=== PATIENT | female | born 1935 | race Caucasian/White ===

== ENCOUNTER 2017-02-03 11:04 | Emergency (ER) | payer MEDICARE, OTHER ==
[2017-02-03 11:33] VITALS: TEMP 97.4
[2017-02-03] MEDS ORDERED: SODIUM CHLORIDE 0.9% (FLUSH) 10 ML SYG IV PRN (12:01)
--- NOTE | 2017-02-03 12:31 | RAD ---
EXAM DESCRIPTION: Chest,1 View CLINICAL HISTORY: 81 years Female, ams, cough COMPARISON: None. IMPRESSION: Heart size and pulmonary vascularity are within normal limits. Low inspiratory volumes which limit evaluation. Mild right infrahilar atelectasis or consolidation is demonstrated which may represent atelectasis or pneumonia. Short interval follow-up recommended. The left lung is essentially clear. No pleural effusion or pneumothorax. No acute osseous abnormality. Electronically signed by: Ever Stack MD 02/03/2017 12:30 PM [facility]
--- NOTE | 2017-02-03 12:35 | ED.PDOC ---
History of Present Illness - General Chief Complaint: Neuro Symptoms/Deficits Stated Complaint: DECREASED LOC Time Seen by Provider: 02/03/17 11:35 Source: family Exam Limitations: physical impairment - WEAKNESS - History of Present Illness Initial Comments: PT BROUGHT TO THE ED FOR EVALUATION BY FAMILY MEMBER WHO STATES THAT PT HAS BEEN INCREASINGLY CONFUSED AND WEAK OVER THE PAST WEEK. FAMILY STATES SHE HAS FALLEN SEVERAL TIMES OVER THE PAST WEEK AND HAS GREAT DIFFICULTY AMBULATING ON HER OWN. FAMILY STATES THAT THEY SUSPECT SHE MAY HAVE OVERDOSED ON HER MEDICATIONS THAT SHE MANAGES HERSELF FOR CHRONIC PAIN. PT UTTERED SUICIDAL IDEATION TODAY WHILE AT HOME AND FAMILY STATES THAT IS UNUSUAL FOR HER. SHE HAS ALSO HAD VISUAL HALLUCINATIONS WHERE SHE SEES FAMILY MEMBERS THAT ARE . FAMILY DENIES FEVER, CHILLS, N/V/D. CHRONIC COUGH AND CHRONIC CONSTIPATION ARE REPORTED. Timing/Duration: 1 week, getting worse Severity: moderate Improving Factors: nothing Worsening Factors: nothing Associated Symptoms: weakness Allergies/Adverse Reactions: Allergies Meperidine [From Demerol HCl] Allergy (Verified 02/03/17 15:09) Home Medications: Ambulatory Orders Amitriptyline HCl 50 mg PO BEDTIME 02/03/17 Carbidopa-Levodopa [Carbidopa/Levodopa 25-250 mg] 1 tab PO Q8H 02/03/17 Donepezil Hydrochloride [Donepezil HCl] 5 mg PO DAILY 02/03/17 Esomeprazole Magnesium 40 mg PO DAILY 02/03/17 Fluticasone Furoate-Vilanterol [Breo Ellipta] 1 inh IN DAILY 02/03/17 Gabapentin [Neurontin] 300 mg PO BID 02/03/17 Lorazepam 0.5 mg PO BID 02/03/17 Morphine Sulfate [Morphine Sulfate ER] 30 mg PO BID 02/03/17 Nitroglycerin 0.4 mg Tab [Nitrostat] 0 ea SL .Q5M 02/03/17 Venlafaxine Xr [Effexor XR] 150 mg PO BID 02/03/17 Review of Systems - Review of Systems Constitutional: Denies: chills, fever EENTM: Denies: nose congestion, throat pain Respiratory: States: see HPI, cough. Denies: short of breath Cardiology: Denies: chest pain, palpitations, syncope Gastrointestinal/Abdominal: States: see HPI, constipation. Denies: diarrhea, nausea, vomiting Musculoskeletal: Denies: joint pain, joint swelling Skin: Denies: change in color, dryness Neurological: States: see HPI, depressed. Denies: headache Endocrine: States: no symptoms reported Hematologic/Lymphatic: States: no symptoms reported Past Medical History (General) - Patient Medical History Hx Seizures: No Hx Stroke: Yes Hx Dementia: Yes Hx of COPD: Yes Hx Cardiac Disorders: Yes - ANGINA Hx Congestive Heart Failure: No Hx Pacemaker: No Hx Hypertension: No Hx Diabetes: No Hx Cancer: No Hx Hepatitis C: No Hx Other PMH: Yes - [place] Surgical History: appendectomy, tonsillectomy, Hysterectomy - Vaccination History Hx Tetanus, Diphtheria Vaccination: No Hx Influenza Vaccination: Yes Hx Pneumococcal Vaccination: No Immunizations Up to Date: No - Social History Hx Tobacco Use: No Hx Alcohol Use: No Hx Substance Use: No Family Medical History - Family History Mother Family History: Unknown Physical Exam - Physical Exam General Appearance: Comfortable, No apparent distress - SOMNOLENT BUT ABLE TO BE AROUSED, Obese, Well Groomed, Well Hydrated Eye Exam: bilateral abnormal pupil - PINPOINT BILATERALLY Ears, Nose, Throat: hearing grossly normal Neck: full range of motion, supple Respiratory: chest non-tender, lungs clear, normal breath sounds, no respiratory distress Cardiovascular/Chest: regular rate, rhythm, no murmur Gastrointestinal/Abdominal: non tender, soft Extremity: non-tender, normal inspection Neurologic: motor weakness - DIFFUSE, depressed affect - SLURRED UNITELLIGIBLE SPEECH Skin Exam: normal color, warm/dry Progress - Progress Progress: 02/03/17 13:01 PT NOW MORE ALERT WITH FREQUENT SPASTIC MOVEMENTS OBSERVED AFTER ADMINISTRATION OF 1MG IV NARCAN. PUPILS NOW 4MM AND REACTIVE. - EKG/XRAY/CT EKG: Sinus, Tachy - @101BPM, NL INTERVALS, NL AXIS, OCC PVCS, no ST T wave changes - NO OLD EKG FOR COMPARISON. Departure - Departure Clinical Impression: Suicidal ideation, Hallucinations, Acute confusion Pneumonia Qualifiers: Pneumonia type: due to unspecified organism Laterality: right Lung location: lower lobe of lung Qualified Code(s): J18.1 - Lobar pneumonia, unspecified organism Suicidal behavior Qualifiers: Attempted self-injury: without attempted self-injury Qualified Code(s): R46.89 - Other symptoms and signs involving appearance and behavior Time of Disposition: 14:00 Disposition: Transfer to Hospital Condition: Fair Departure Forms: ED Discharge - Pt. Copy, Patient Portal Self Enrollment Referrals: SHARONA MCCULLOUGH [Primary Care Provider] - 1-2 Weeks Home Medications: Ambulatory Orders Amitriptyline HCl 50 mg PO BEDTIME 02/03/17 Carbidopa-Levodopa [Carbidopa/Levodopa 25-250 mg] 1 tab PO Q8H 02/03/17 Donepezil Hydrochloride [Donepezil HCl] 5 mg PO DAILY 02/03/17 Esomeprazole Magnesium 40 mg PO DAILY 02/03/17 Fluticasone Furoate-Vilanterol [Breo Ellipta] 1 inh IN DAILY 02/03/17 Gabapentin [Neurontin] 300 mg PO BID 02/03/17 Lorazepam 0.5 mg PO BID 02/03/17 Morphine Sulfate [Morphine Sulfate ER] 30 mg PO BID 02/03/17 Nitroglycerin 0.4 mg Tab [Nitrostat] 0 ea SL .Q5M 02/03/17 Venlafaxine Xr [Effexor XR] 150 mg PO BID 02/03/17 Transfer to Outside Facility - Transfer Information Accepting Provider:: DR. HAMMOND Accepting Facility: [facility] Reason for Transfer: specialized care not available - NEEDS PSYCHIATRIC SERVICES AND ONE TO ONE MONITORING.
[2017-02-03] MEDS: SODIUM CHLORIDE 0.9% 1000ML 1,000 ML IVS PRN (12:48)
[2017-02-03] MEDS: NALOXONE HCL INJ 1 MG/ML SYG IV ONE (12:48)
--- NOTE | 2017-02-03 12:53 | CT ---
EXAM DESCRIPTION: Head-CT head without contrast. CLINICAL HISTORY: Altered mental status. COMPARISON: None available TECHNIQUE: Multiple axial images of the head without contrast. Multiplanar reformatted images. This exam was performed according to our departmental dose-optimization program, which includes automated exposure control, adjustment of the mA and/or kV according to patient size and/or use of iterative reconstruction technique. FINDINGS: Moderately degraded image quality secondary to motion artifact. No definite CT evidence of intracranial hemorrhage, mass effect, or large territory infarction. Moderate generalized volume loss and moderate patchy supratentorial white matter hypodensities are demonstrated. No hydrocephalus. There are no abnormal extra-axial fluid collections. Calcific plaque in the visualized arteries. There is no acute calvarial defect. The visualized paranasal sinuses and the mastoids are clear. IMPRESSION: 1. Limited evaluation with no definite CT evidence of an acute intracranial abnormality. If there is concern for an acute or subacute infarct, consider follow-up MRI. 2. Senescent changes. Electronically signed by: Ever Stack MD 02/03/2017 12:52 PM [facility]
[2017-02-03 14:19] VITALS: O2SAT 100
[2017-02-03] MEDS ORDERED: AZITHROMYCIN IV 500 MG in SODIUM CHLORIDE 0.9% 250ML 250 ML IVPB ONE (14:47)
[2017-02-03] MEDS ORDERED: cefTRIAXone SODIUM 1 GM in SODIUM CHL 0.9% 50ML MIN-BAG+ 50 ML IVPB ONE (14:47)
[2017-02-03 16:17] VITALS: BP 142/88
== END 2017-02-03 16:17 | disposition short-term general hospital (02) ==
LOC: ER 11:04
DX: R45.851 Suicidal ideations (principal); R44.3 Hallucinations, unspecified; R41.0 Disorientation, unspecified; J18.1 Lobar pneumonia, unspecified organism; R46.89 Other symptoms and signs involving appearance and behavior; J44.9 Chronic obstructive pulmonary disease, unspecified; G20 Parkinson's disease; F02.80 Dementia in other diseases classified elsewhere, unspecified severity, without behavioral disturbance, psychotic disturbance, mood disturbance, and anxiety; Z79.899 Other long term (current) drug therapy; Z88.8 Allergy status to other drugs, medicaments and biological substances
CPT/HCPCS: 36415; 70450; 71010; 80053; 80320; 80329; 82550; 82553; 84484; 85025; 85610; 85730; 87040; 93005; J2310; J7030

== ENCOUNTER → 2018-02-26 | Outpatient (CLI) | payer MEDICARE, MEDICAID | LOC: NC 17:28 | PROVIDERS: ATTEND Family Medicine | DX: G20 Parkinson's disease (principal); J44.9 Chronic obstructive pulmonary disease, unspecified; F02.80 Dementia in other diseases classified elsewhere, unspecified severity, without behavioral disturbance, psychotic disturbance, mood disturbance, and anxiety; J45.909 Unspecified asthma, uncomplicated; M16.0 Bilateral primary osteoarthritis of hip; M51.36 Other intervertebral disc degeneration, lumbar region; M48.00 Spinal stenosis, site unspecified ==